=== PATIENT | male | born 1985 | race Caucasian/White ===

== ENCOUNTER 2017-10-13 16:39 | Emergency (ER) | payer SELFPAY ==
[~2017-10-13] VITALS: Ht 167.6 cm; Wt 99.1 kg
[2017-10-13 16:55] VITALS: BP 135/106
--- NOTE | 2017-10-13 17:00 | NUR ---
PT AMBULATED TO BED 6.
--- NOTE | 2017-10-13 17:03 | NUR ---
32M BIB SELF C/O RECTAL PAIN, ACHING, RADIATES TO BL FLANK, 10/10 X 1 WEEK; PT C/O 3 EPISODES OF DIARRHEA WITH BLOOD IN STOOLS AND NAUSEA TODAY, BUT STATES NO VOMITING AT THIS TIME; ABDOMEN SOFT, NON-TENDER, ACTIVE BOWEL SOUNDS X 4 QUADRANTS; PT AA&OX4, PERRLA, BL LUNG SOUNDS CLEAR, RR EVEN/UNLABORED, SKIN IS WARM/DRY/INTACT AT THIS TIME; STEADY GAIT; PT RESTING IN BED WITH HOB ELEVATED AND IN LOWEST POSITION; POSITIONED FOR COMFORT; ER MD MADE AWARE OF STATUS. WILL CONTINUE TO MONITOR.
--- NOTE | 2017-10-13 17:09 | NUR ---
ER MD DR. WARREN EVALUATING PT AT BEDSIDE.
[2017-10-13] MEDS ORDERED: NACL 0.9% 1,000 ML IV SCH (17:13)
[2017-10-13] MEDS ORDERED: KETOROLAC 30 MG/ML VIAL IVP ONE (17:15)
[2017-10-13] MEDS ORDERED: ONDANSETRON 4 MG/2 ML VIAL IVP ONE (17:15)
[2017-10-13 17:53] LABS: BASOPHILS # (AUTO) 0.2 K/uL (0.00-0.22); BASOPHILS % (AUTO) 1.8 % (0.0-2.0); EOSINOPHILS # (AUTO) 0.2 K/uL (0-0.4); EOSINOPHILS % (AUTO) 2.2 % (0.0-4.0); LYMPHOCYTES # (AUTO) 2.1 K/uL (2.0-11.5); MEAN CORPUSCULAR HEMOGLOBIN 30 pg (27-31); MEAN CORPUSCULAR HGB CONC 33 g/dL (33-37); MEAN CORPUSCULAR VOLUME 93 fL (80-94); MONOCYTES # (AUTO) 0.7 K/uL (0.8-1.0); MONOCYTES % (AUTO) 7.8 % (1.7-9.3); NEUTROPHILS # (AUTO) 5.4 K/uL (1.8-7.7); NEUTROPHILS % (AUTO) 63.2 % (42.2-75.2); PLATELET COUNT (AUTO) 284 K/uL (140-450); RED BLOOD CELL COUNT(AUTO) 5.28 MIL/uL (4.20-6.10); RED CELL DISTRIBUTION WIDTH 11.8 % (11.6-13.7); WHITE BLOOD COUNT (AUTO) 8.6 K/uL (4.8-10.8)
[2017-10-13 18:12] LABS: ANION GAP 7.1 (8-16); CARBON DIOXIDE 31.5 mmol/L (21-32); CREATININE 0.8 mg/dL (0.7-1.3); POTASSIUM 3.6 mmol/L (3.5-5.1)
[2017-10-13 18:18] LABS: ALBUMIN 3.4 g/dL (3.4-5.0); TOTAL BILIRUBIN 0.6 mg/dL (0.0-1.0)
[2017-10-13] MEDS ORDERED: MORPHINE SULFATE 4 MG/ML SYR IVP ONE (18:25)
--- NOTE | 2017-10-13 19:05 | NUR ---
Pt report given to SCAR CERVANTES. Transfer of care at this time.
--- NOTE | 2017-10-13 19:30 | NUR ---
DPatient discharged with v/s stable. Written and verbal after care instructions given and explained. Patient alert, oriented and verbalized understanding of instructions. Ambulatory with steady gait. All questions addressed prior to discharge. ID band removed. Patient advised to follow up with PMD. Rx of ZOFRAN, NORCO AND CIPRO given. Patient educated on indication of medication including possible reaction and side effects. Opportunity to ask questions provided and answered.
[2017-10-13 19:32] VITALS: BP 135/86
== END 2017-10-13 19:30 | disposition home or self-care (01) ==
LOC: MED 16:39
DX: R19.7 Diarrhea, unspecified (principal); E86.0 Dehydration; K62.89 Other specified diseases of anus and rectum; Z90.49 Acquired absence of other specified parts of digestive tract
CPT/HCPCS: 36415; 80053; 83605; 85025; 87040; 96361; 96374; 96375; 99284; J1885; J2270; J2405; J7030

== ENCOUNTER 2018-02-01 22:51 | Emergency (ER) | payer OTHER ==
[~2018-02-01] VITALS: Ht 170.2 cm; Wt 100.8 kg
[2018-02-01 23:05] VITALS: BP 147/97
--- NOTE | 2018-02-01 23:12 | NUR ---
33 Y/O M W/C/O RECTAL PAIN X 1 WK AGO. MED HX HEMORROIDS.. PT STATES NO BLEEDING . DENIES N/V/D; SKIN IS PINK/WARM/DRY; AAOX4 WITH EVEN AND STEADY GAIT; LUNGS CLEAR BL; HR EVEN AND REGULAR; PT DENIES ANY FEVER, CP, SOB, OR COUGH AT THIS TIME; PATIENT STATES PAIN OF 8/10 AT THIS TIME; PATIENT POSITIONED FOR COMFORT; HOB ELEVATED; BEDRAILS UP X2; BED DOWN. ER MD MADE AWARE OF PT STATUS. PER PT IT HURTS WHEN HE MOVE A LOT.
--- NOTE | 2018-02-01 23:25 | NUR ---
ASKED PT IF HE CAN REMOVE HIS PANTS, PER PT HE WILL REMOVE IT LATER WHEN THE DOCTOR COMES, PT SOLEO LOOKING AT HIS PHONE AT THIS TIME.
[2018-02-01 23:55] VITALS: BP 129/80
--- NOTE | 2018-02-01 23:55 | NUR ---
Patient discharged with v/s stable. Written and verbal after care instructions given and explained. Patient alert, oriented and verbalized understanding of instructions. Ambulatory with steady gait. All questions addressed prior to discharge. ID band removed. Patient advised to follow up with PMD. Rx of motrin 800mg, hydrocortisone 100mg/60ml rectal enema suspension given. Patient educated on indication of medication including possible reaction and side effects. Opportunity to ask questions provided and answered.
== END 2018-02-01 23:55 | disposition home or self-care (01) ==
LOC: MED 22:51
DX: K59.4 Anal spasm (principal)
CPT/HCPCS: 99283

== ENCOUNTER 2018-05-06 22:03 | Emergency (ER) | payer OTHER ==
[~2018-05-06] VITALS: Ht 160 cm; Wt 81.6 kg
[2018-05-06 22:06] VITALS: BP 150/100
[2018-05-06] MEDS ORDERED: NACL 0.9% 1,000 ML IV ONE (22:35)
[2018-05-06] MEDS ORDERED: methylPREDNISolone SS 125 MG/2 ML VIAL IM ONE (22:35)
[2018-05-06] MEDS ORDERED: ALBUTEROL SULFATE/IPRATROPIU 3 ML SOL IH ONE (22:35)
[2018-05-06] MEDS ORDERED: methylPREDNISolone SS 125 MG/2 ML VIAL IVP ONE (22:45)
[2018-05-06 23:31] VITALS: BP 145/77
== END 2018-05-06 23:03 | disposition home or self-care (01) ==
LOC: MED 22:03
DX: J20.9 Acute bronchitis, unspecified (principal)
CPT/HCPCS: 94640; 94760; 96361; 96374; 99284; J2930; J7030; J7620

== ENCOUNTER 2018-05-29 01:04 | Emergency (ER) | payer OTHER ==
[~2018-05-29] VITALS: Ht 167.6 cm; Wt 94.8 kg
[2018-05-29 01:09] VITALS: BP 166/96
--- NOTE | 2018-05-29 01:17 | NUR ---
pt ambulated to er bed 2.
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
--- NOTE | 2018-05-29 01:23 | NUR ---
talked to tiburcio brooke, advised all parties have spoken to concerning the case, no follow up needed.
[2018-05-29] MEDS ORDERED: IBUPROFEN 800 MG TAB PO ONE (01:35)
[2018-05-29] MEDS ORDERED: AMOXICILLIN 500 MG CAP PO ONE (01:35)
--- NOTE | 2018-05-29 02:51 | NUR ---
Patient discharged with v/s stable. Written and verbal after care instructions given and explained. Patient alert, oriented and verbalized understanding of instructions. Ambulatory with steady gait. All questions addressed prior to discharge. ID band removed. Patient advised to follow up with PMD. Rx of AUGMENTIN, MOTRIN given. Patient educated on indication of medication including possible reaction and side effects. Opportunity to ask questions provided and answered.
[2018-05-29 02:54] VITALS: BP 154/89
== END 2018-05-29 02:51 | disposition home or self-care (01) ==
LOC: MED 01:04
DX: S01.551A Open bite of lip, initial encounter (principal); S41.152A Open bite of left upper arm, initial encounter; S63.611A Unspecified sprain of left index finger, initial encounter; Y04.1XXA Assault by human bite, initial encounter; Y93.89 Activity, other specified; Y92.89 Other specified places as the place of occurrence of the external cause; Y99.8 Other external cause status
CPT/HCPCS: 73130; 90471; 90715; 99284; Q0092

== ENCOUNTER 2019-03-02 17:59 | Emergency (ER) | payer SELFPAY ==
--- NOTE | 2019-03-02 18:10 | NUR ---
no answer in er lobby
--- NOTE | 2019-03-02 18:20 | NUR ---
no answer in er lobby
--- NOTE | 2019-03-02 18:30 | NUR ---
no answer in er lobby
== END 2019-03-02 18:10 | disposition left against medical advice (07) ==
LOC: MED 17:59
DX: Z53.21 Procedure and treatment not carried out due to patient leaving prior to being seen by health care provider (principal)

== ENCOUNTER 2019-03-08 12:16 | Emergency (ER) | payer MEDICAID ==
[~2019-03-08] VITALS: Ht 167.6 cm; Wt 99.8 kg
[2019-03-08 12:22] VITALS: BP 143/87
--- NOTE | 2019-03-08 12:25 | NUR ---
BIB SELF. AAO X4. PT IS REQUESTING FOR MEDICATION REFILL-APPLYING FOR EMERGENCY MEDICAL. PT IS ON PREZCOBIX 800 MG-150 MG QD, DESCOVY 200MG-25 MG QD, VITAMIN D3 2000 UNITS QD. HOB UP. BED SIDE RAILS UP X1. ON LOW BED POSITION, LOCKED. ER MADE AWARE OF PT STATUS.
[2019-03-08 13:38] VITALS: BP 135/72
--- NOTE | 2019-03-08 13:40 | NUR ---
Patient discharged with v/s stable. Written and verbal after care instructions given and explained. Patient alert, oriented and verbalized understanding of instructions. Ambulatory with steady gait. All questions addressed prior to discharge. ID band removed. Patient advised to follow up with PMD. Rx of DESCOVEY, VITAMIN, PREZCOXIB given. Patient educated on indication of medication including possible reaction and side effects. Opportunity to ask questions provided and answered.
== END 2019-03-08 13:40 | disposition home or self-care (01) ==
LOC: MED 12:16
DX: Z76.0 Encounter for issue of repeat prescription (principal)
CPT/HCPCS: 99283

== ENCOUNTER 2019-03-10 17:41 | Emergency (ER) | payer MEDICAID ==
[~2019-03-10] VITALS: Ht 167.6 cm; Wt 97.5 kg
[2019-03-10 17:59] VITALS: BP 123/91
--- NOTE | 2019-03-10 18:03 | NUR ---
PATIENT AMBULATED TO ER BED 9.
--- NOTE | 2019-03-10 18:04 | NUR ---
PT IS A 34 Y/O MALE WHO PRESENTS TO THE ED C/O ABD PAIN. PER PT IT HAS BEEN GOING ON SINCE FRIDAY. PT REPORTS 8/10 ACHING EPIGASTRIC ABD PAIN. PT DENIES CP, SOB, REPORTS NAUSEA/VOMITING DENIES DIARRHEA. PT AWAKE AND ALERT, RR EVEN/UNLABORED. PT REPOSITIONED FOR COMFORT, BED IN LOWEST POSITION. ER MD DR. PIZARRO NOTIFIED. WILL CONTINUE TO MONITOR. PMH: APPENDIX SURGERY
[2019-03-10] MEDS ORDERED: FAMOTIDINE 20 MG TAB PO ONE (18:40)
[2019-03-10] MEDS ORDERED: METOCLOPRAMIDE 10 MG TAB PO ONE (18:40)
[2019-03-10] MEDS ORDERED: DICYCLOMINE HCL LIQUID 10 MG/5 ML UDC PO ONE (18:40)
[2019-03-10] MEDS ORDERED: hydrOXYzine HCL 25 MG TAB PO ONE (18:40)
[2019-03-10 19:16] VITALS: BP 125/85
--- NOTE | 2019-03-10 19:20 | NUR ---
Patient discharged with v/s stable. Written and verbal after care instructions given and explained. Patient alert, oriented and verbalized understanding of instructions. Ambulatory with steady gait. All questions addressed prior to discharge. ID band removed. Patient advised to follow up with PMD. Rx of FAMATOADINE, BENTYL given. Patient educated on indication of medication including possible reaction and side effects. Opportunity to ask questions provided and answered.
== END 2019-03-10 19:20 | disposition home or self-care (01) ==
LOC: MED 17:41
DX: R10.13 Epigastric pain (principal); R11.2 Nausea with vomiting, unspecified; Z90.49 Acquired absence of other specified parts of digestive tract
CPT/HCPCS: 99284; J8597

== ENCOUNTER 2019-08-06 05:59 | Emergency (ER) | payer MEDICAID ==
[~2019-08-06] VITALS: Ht 167.6 cm; Wt 79.4 kg
[2019-08-06 06:03] VITALS: BP 143/96
--- NOTE | 2019-08-06 06:03 | NUR ---
PT AMBULATED SELF TO BED #11
--- NOTE | 2019-08-06 06:08 | NUR ---
34 Y/O MALE PRESENTS TO ED, C/O THROAT PAIN 08/26. PT STATES PAIN STARTED YESTERDAY. UNABLE TO TOLERATE FOOD AND LIQUID WITHOUT HAVING ANYPAIN. PT DENIES ANY DIFFICULTY BREATHING OR SOB. THROAT APPEARS TO BE PINK AND MOIST. PT HAS NO FEVER, TEMPORAL TEMP AT 97.6. PT DENIES TAKING ANY MEDICATIONS FOR PAIN. PT VSS. ERMD AWARE. WILL CONTINUE TO MONITOR.
[2019-08-06] MEDS ORDERED: DEXAMETHASONE 10 MG/ML VIAL PO ONE (06:45)
[2019-08-06] MEDS ORDERED: KETOROLAC 30 MG/ML VIAL IM ONE (06:45)
[2019-08-06 07:07] VITALS: BP 146/78
--- NOTE | 2019-08-06 07:07 | NUR ---
PT DISCHARGED WITH PAPER. RX T3, AMOXICILLIN, NAPROSYN. EDUCATED PT REGARDING MEDICATIONS AND S/E. EDUCATED PT REGARDING D/C DIAGNOSIS AND INSTRUCTIONS. PT VERBALIZED UNDERSTANDING OF TEACHING. TOLD PT TO FOLLOW UP WITH PCP AND WHEN TO RETURN TO ED. PT VSS. ALL QUESTIONS ANSWERED.
== END 2019-08-06 07:07 | disposition home or self-care (01) ==
LOC: MED 05:59
DX: J02.9 Acute pharyngitis, unspecified (principal)
CPT/HCPCS: 96372; 99283; J1100; J1885

== ENCOUNTER 2019-10-10 19:25 | Emergency (ER) | payer MEDICAID ==
[~2019-10-10] VITALS: Ht 167.6 cm; Wt 81.6 kg
[2019-10-10 19:44] VITALS: BP 156/108
--- NOTE | 2019-10-10 19:44 | NUR ---
Pt ambulated to bed
--- NOTE | 2019-10-10 20:00 | NUR ---
34/M PRESENTS TO ED, C/O COUGH, CONGESTION, RHINNORHEA, X2 WEEKS. PT AWAKE AND ALERT, SKIN NORMAL COLOR WARM AND DRY, RR EVEN AND UNLABORED.
[2019-10-10 20:05] VITALS: BP 156/108
--- NOTE | 2019-10-10 20:05 | NUR ---
Patient discharged with recent v/s stable by Dr. Noland. Written and verbal after care instructions given and explained by Dr. Noland. Patient alert, oriented and verbalized understanding of instructions. Ambulatory with steady gait. All questions addressed prior to discharge by Dr. Noland. ID band removed by Dr. Noland. Patient advised to follow up with PMD by Dr. Noland. Rx of Augmentin given by Dr. Noland. Patient educated on indication of medication including possible reaction and side effects by Dr. Noland. Opportunity to ask questions provided and answered by Dr. Noland.
== END 2019-10-10 20:05 | disposition home or self-care (01) ==
LOC: MED 19:25
DX: J40 Bronchitis, not specified as acute or chronic (principal)
CPT/HCPCS: 99283

== ENCOUNTER 2020-08-12 13:00 | Emergency (ER) | payer MEDICAID ==
[~2020-08-12] VITALS: Ht 170.2 cm; Wt 98.0 kg
[2020-08-12 13:05] VITALS: BP 136/86
[2020-08-12 13:22] VITALS: BP 136/86
== END 2020-08-12 13:23 | disposition home or self-care (01) ==
LOC: MED 13:00
DX: J30.9 Allergic rhinitis, unspecified (principal)
CPT/HCPCS: 99283

== ENCOUNTER 2020-10-12 21:04 | Emergency (ER) | payer MEDICAID, SELFPAY ==
[~2020-10-12] VITALS: Ht 170.2 cm; Wt 86.2 kg
[2020-10-12 21:16] VITALS: BP 156/109
--- NOTE | 2020-10-12 21:51 | NUR ---
no nursing intervention ordered by Dr. Briseno.
--- NOTE | 2020-10-12 21:52 | NUR ---
Patient discharged with v/s stable. Written and verbal after care instructions given and explained. Patient alert, oriented and verbalized understanding of instructions. Ambulatory with steady gait. All questions addressed prior to discharge. ID band removed. Patient advised to follow up with PMD. Rx of flonase and amoxicillin given. Patient educated on indication of medication including possible reaction and side effects. Opportunity to ask questions provided and answered.
== END 2020-10-12 21:52 | disposition home or self-care (01) ==
LOC: MED 21:04
DX: J32.9 Chronic sinusitis, unspecified (principal)
CPT/HCPCS: 99283

== ENCOUNTER 2021-01-21 10:01 | Emergency (ER) | payer MEDICAID, SELFPAY ==
[~2021-01-21] VITALS: Ht 172.7 cm; Wt 86.2 kg
[2021-01-21 10:03] VITALS: BP 169/116
--- NOTE | 2021-01-21 10:09 | NUR ---
pt ambulated to bed 9 with steady gait
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
--- NOTE | 2021-01-21 10:22 | NUR ---
GABINO HIGUERA SAMPLE GIVEN TO EMILI OCASIO TECH
--- NOTE | 2021-01-21 10:27 | NUR ---
DR BURK AT BEDSIDE
[2021-01-21] MEDS: NACL 0.9% 1,000 ML IV ONE (10:29)
[2021-01-21 10:30] LABS: BASOPHILS # (AUTO) 0.1 K/uL (0.00-0.22); BASOPHILS % (AUTO) 1.1 % (0.0-2.0); EOSINOPHILS # (AUTO) 0.1 K/uL (0-0.4); HEMATOCRIT 43.2 % (36-52); HEMOGLOBIN 15.1 g/dL (12.0-18.0); LYMPHOCYTES # (AUTO) 1.2 K/uL (2.0-11.5); LYMPHOCYTES % (AUTO) 19.6 % (20.5-51.1); MEAN CORPUSCULAR HEMOGLOBIN 31 pg (27-31); MEAN CORPUSCULAR HGB CONC 35 g/dL (33-37); MEAN CORPUSCULAR VOLUME 88.8 fL (80-94); MONOCYTES # (AUTO) 0.4 K/uL (0.8-1.0); MONOCYTES % (AUTO) 6.7 % (1.7-9.3); NEUTROPHILS # (AUTO) 4.3 K/uL (1.8-7.7); NEUTROPHILS % (AUTO) 71.6 % (42.2-75.2); PLATELET COUNT (AUTO) 289 K/uL (140-450); RED BLOOD CELL COUNT(AUTO) 4.86 MIL/uL (4.20-6.10); WHITE BLOOD COUNT (AUTO) 6.1 K/uL (4.8-10.8)
[2021-01-21 10:41] LABS: ANION GAP 8.1 (8-16); CARBON DIOXIDE 30.6 mmol/L (21-32); CREATININE 0.8 mg/dL (0.6-1.3); POTASSIUM 3.7 mmol/L (3.5-5.1)
[2021-01-21 10:45] LABS: ALBUMIN 3.6 g/dL (3.4-5.0); BILIRUBIN,DIRECT 0.1 mg/dL (0.0-0.3); TOTAL BILIRUBIN 0.5 mg/dL (0.0-1.0)
[2021-01-21] MEDS ORDERED: ONDA4TAB PO ×2 (11:15→22:30)
--- NOTE | 2021-01-21 11:30 | NUR ---
Patient discharged with v/s stable. Written and verbal after care instructions given and explained. Patient verbalized understanding. Ambulatory with steady gait. All questions addressed prior to discharge. Advised to follow up with PMD.
[2021-01-21 11:37] VITALS: BP 146/91
[2021-01-21] MEDS ORDERED: IMO2 PO (22:29)
== END 2021-01-21 11:30 | disposition home or self-care (01) ==
LOC: MED 10:01
DX: R11.2 Nausea with vomiting, unspecified (principal); Z20.822 Contact with and (suspected) exposure to COVID-19; R19.7 Diarrhea, unspecified; R10.9 Unspecified abdominal pain
CPT/HCPCS: 36415; 80048; 80076; 83690; 85025; 96360; 99283

== ENCOUNTER 2021-01-21 19:52 | Emergency (ER) | payer MEDICAID ==
[~2021-01-21] VITALS: Ht 170.2 cm; Wt 86.2 kg
[~2021-01-21 19:52] MED LIST: ONDA4TAB PO
[2021-01-21 19:59] VITALS: BP 145/99
[2021-01-21] MEDS ORDERED: ONDANSETRON 4 MG/2 ML VIAL IVP ONE (21:00)
[2021-01-21] MEDS ORDERED: NACL 0.9% 1,000 ML IV ONE (21:00)
[2021-01-21] MEDS ORDERED: ACETAMINOPHEN EXTRA STRENGTH 500 MG TAB PO ONE (21:20)
[2021-01-21 21:24] LABS: BASOPHILS % (AUTO) 0.7 % (0.0-2.0); EOSINOPHILS # (AUTO) 0.1 K/uL (0-0.4); EOSINOPHILS % (AUTO) 1.2 % (0.0-4.0); HEMATOCRIT 40.2 % (36-52); LYMPHOCYTES # (AUTO) 1.6 K/uL (2.0-11.5); LYMPHOCYTES % (AUTO) 28.3 % (20.5-51.1); MEAN CORPUSCULAR HEMOGLOBIN 31 pg (27-31); MEAN CORPUSCULAR HGB CONC 35 g/dL (33-37); MEAN CORPUSCULAR VOLUME 88.4 fL (80-94); MONOCYTES # (AUTO) 0.4 K/uL (0.8-1.0); MONOCYTES % (AUTO) 7.1 % (1.7-9.3); NEUTROPHILS # (AUTO) 3.6 K/uL (1.8-7.7); NEUTROPHILS % (AUTO) 62.7 % (42.2-75.2); PLATELET COUNT (AUTO) 288 K/uL (140-450); RED BLOOD CELL COUNT(AUTO) 4.54 MIL/uL (4.20-6.10); RED CELL DISTRIBUTION WIDTH 13.3 % (11.6-13.7); WHITE BLOOD COUNT (AUTO) 5.8 K/uL (4.8-10.8)
[2021-01-21 21:42] LABS: ALBUMIN 3.4 g/dL (3.4-5.0); ANION GAP 12.2 (8-16); CREATININE 0.9 mg/dL (0.6-1.3); POTASSIUM 4.2 mmol/L (3.5-5.1); TOTAL BILIRUBIN 0.3 mg/dL (0.0-1.0)
[2021-01-21] MEDS ORDERED: ALUMINUM HYD/MAG/SIMETHICONE 30 ML UDC PO ONE (21:55)
[2021-01-21] MEDS ORDERED: METOCLOPRAMIDE 10 MG/2 ML INJ VIAL IVP ONE (21:55)
[2021-01-21] MEDS ORDERED: FAMOTIDINE 20 MG TAB PO ONE (21:55)
[2021-01-21] MEDS ORDERED: IMO2 PO (22:29)
[2021-01-21] MEDS ORDERED: ONDA4TAB PO (22:30)
[2021-01-21 22:50] VITALS: BP 145/99
== END 2021-01-21 22:50 | disposition home or self-care (01) ==
LOC: MED 19:52
DX: R19.7 Diarrhea, unspecified (principal); Z20.822 Contact with and (suspected) exposure to COVID-19; R10.13 Epigastric pain; R11.2 Nausea with vomiting, unspecified; Z90.49 Acquired absence of other specified parts of digestive tract; Z79.899 Other long term (current) drug therapy
CPT/HCPCS: 36415; 80053; 83690; 85025; 96361; 96374; 96375; 99284; J2405; J2765; U0003

== ENCOUNTER 2021-04-13 17:41 | Emergency (ER) | payer MEDICAID ==
[~2021-04-13] VITALS: Ht 167.6 cm; Wt 99.8 kg
[~2021-04-13 17:41] MED LIST changes: +IMO2 PO
[2021-04-13 17:45] VITALS: BP 140/104
--- NOTE | 2021-04-13 17:50 | NUR ---
PT AMBULATED TO BED 02.
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
[2021-04-13] MEDS ORDERED: NAPR-54 PO (18:27)
[2021-04-13] MEDS: KETOROLAC 30 MG/ML VIAL IM ONE (18:43)
[2021-04-13 18:46] VITALS: BP 140/104
== END 2021-04-13 18:47 | disposition home or self-care (01) ==
LOC: MED 17:41
DX: M25.531 Pain in right wrist (principal); I10 Essential (primary) hypertension; F41.9 Anxiety disorder, unspecified; Z79.899 Other long term (current) drug therapy
CPT/HCPCS: 29125; 73110; 96372; 99283; J1885

== ENCOUNTER 2021-04-15 08:17 | Emergency (ER) | payer MEDICAID ==
[~2021-04-15] VITALS: Ht 162.6 cm; Wt 99.8 kg
[~2021-04-15 08:17] MED LIST changes: +NAPR-54 PO
[2021-04-15 08:25] VITALS: BP 156/95
[2021-04-15] MEDS ORDERED: IBUPROFEN 600 MG TAB PO ONE (08:40)
[2021-04-15] MEDS ORDERED: IBUP-2213 PO (08:41)
[2021-04-15 08:59] VITALS: BP 156/95
[2021-04-15] MEDS ORDERED: GABA300C PO (21:22)
== END 2021-04-15 08:59 | disposition home or self-care (01) ==
LOC: MED 08:17
DX: G56.01 Carpal tunnel syndrome, right upper limb (principal); Z79.899 Other long term (current) drug therapy
CPT/HCPCS: 99282

== ENCOUNTER 2021-04-15 20:39 | Emergency (ER) | payer MEDICAID ==
[~2021-04-15] VITALS: Ht 167.6 cm; Wt 103.4 kg
[~2021-04-15 20:39] MED LIST changes: +IBUP-2213 PO
[2021-04-15 20:42] VITALS: BP 149/97
--- NOTE | 2021-04-15 20:50 | NUR ---
PT TAKEN TO BED 11
[2021-04-15 20:55] VITALS: BP 149/97
--- NOTE | 2021-04-15 21:04 | NUR ---
Dr. Braun examining patient.
[2021-04-15] MEDS ORDERED: GABAPENTIN 300 MG CAP PO ONE (21:10)
[2021-04-15] MEDS ORDERED: GABA300C PO (21:22)
--- NOTE | 2021-04-15 21:31 | NUR ---
d/c with VSS. d/c education given. rx of neurontin given. opportunity to ask questions given and answered.
== END 2021-04-15 21:31 | disposition home or self-care (01) ==
LOC: MED 20:39
DX: M54.10 Radiculopathy, site unspecified (principal); Z79.899 Other long term (current) drug therapy
CPT/HCPCS: 99283

== ENCOUNTER 2021-04-24 01:00 | Emergency (ER) | payer MEDICAID ==
[~2021-04-24] VITALS: Ht 167.6 cm; Wt 86.2 kg
[~2021-04-24 01:00] MED LIST changes: +GABA300C PO
[2021-04-24 01:12] VITALS: BP 147/78
--- NOTE | 2021-04-24 01:12 | NUR ---
TO BED AMBULATORY
--- NOTE | 2021-04-24 01:19 | NUR ---
Dr. Moreno examining patient.
[2021-04-24 01:26] VITALS: BP 147/78
--- NOTE | 2021-04-24 01:26 | NUR ---
Patient discharged with v/s stable. Written and verbal after care instructions given and explained. Patient verbalized understanding. Ambulatory with steady gait. All questions addressed prior to discharge. Advised to follow up with PMD. NO NURSING INTERVENTIONS NEEDED.
== END 2021-04-24 01:26 | disposition home or self-care (01) ==
LOC: MED 01:00
DX: G56.01 Carpal tunnel syndrome, right upper limb (principal); Z79.899 Other long term (current) drug therapy
CPT/HCPCS: 99281

== ENCOUNTER 2021-04-30 14:20 | Emergency (ER) | payer MEDICAID ==
[~2021-04-30] VITALS: Ht 167.6 cm; Wt 101.6 kg
[2021-04-30 14:51] VITALS: BP 141/96
--- NOTE | 2021-04-30 14:55 | NUR ---
PT AMBULATORY TO LOBBY TO A/W BED
--- NOTE | 2021-04-30 15:14 | NUR ---
PT EVALUATED BY PA. JESSE
[2021-04-30] MEDS ORDERED: IBUP-1842 PO (15:18)
[2021-04-30] MEDS ORDERED: LIDO100S MC (15:18)
--- NOTE | 2021-04-30 15:34 | NUR ---
Patient discharged with v/s stable. Written and verbal after care instructions given and explained. Patient alert, oriented and verbalized understanding of instructions. Ambulatory with steady gait. All questions addressed prior to discharge. ID band removed. Patient advised to follow up with PMD. Rx of MOTRIN AND LIDOCAINE given. Patient educated on indication of medication including possible reaction and side effects. Opportunity to ask questions provided and answered.
== END 2021-04-30 15:34 | disposition home or self-care (01) ==
LOC: MED 14:20
DX: K14.6 Glossodynia (principal); F15.10 Other stimulant abuse, uncomplicated; Z79.899 Other long term (current) drug therapy
CPT/HCPCS: 99283

== ENCOUNTER 2021-08-01 20:56 | Emergency (ER) | payer MEDICAID ==
[~2021-08-01] VITALS: Ht 167.6 cm; Wt 81.6 kg
[~2021-08-01 20:56] MED LIST changes: +IBUP-1842 PO; +LIDO100S MC
[2021-08-01 21:02] VITALS: BP 134/68
--- NOTE | 2021-08-01 21:08 | NUR ---
TO LOBBY FOLLOWING TRIAGE
[2021-08-01] MEDS ORDERED: QUET200T PO (21:47)
[2021-08-01 21:58] VITALS: BP 134/68
--- NOTE | 2021-08-01 21:58 | NUR ---
Patient discharged with v/s stable. Written and verbal after care instructions given and explained. Patient alert, oriented and verbalized understanding of instructions. Ambulatory with steady gait. All questions addressed prior to discharge. ID band removed. Patient advised to follow up with PMD. Rx of QUETIAPINE FUMARATE given. Patient educated on indication of medication including possible reaction and side effects. Opportunity to ask questions provided and answered.
== END 2021-08-01 21:58 | disposition home or self-care (01) ==
LOC: MED 20:56
DX: F41.9 Anxiety disorder, unspecified (principal); Z76.0 Encounter for issue of repeat prescription
CPT/HCPCS: 99281

== ENCOUNTER 2022-02-16 17:25 | Emergency (ER) | payer MEDICAID ==
[~2022-02-16] VITALS: Ht 167.6 cm; Wt 81.6 kg
[~2022-02-16 17:25] MED LIST changes: +QUET200T PO
[2022-02-16 17:54] VITALS: BP 147/82
[2022-02-16] MEDS ORDERED: LORA10TA19 PO (18:44)
[2022-02-16] MEDS ORDERED: FLONAS NS (18:44)
[2022-02-16] MEDS ORDERED: ALBU0.0912 IH (18:44)
[2022-02-16 18:50] VITALS: BP 147/82
[2022-02-17] MEDS ORDERED: CETI1TAB5 PO (07:30)
[2022-02-17] MEDS ORDERED: FLONAS NS (07:30)
== END 2022-02-16 18:50 | disposition home or self-care (01) ==
LOC: MED 17:25
DX: J30.9 Allergic rhinitis, unspecified (principal); R03.0 Elevated blood-pressure reading, without diagnosis of hypertension; F17.210 Nicotine dependence, cigarettes, uncomplicated; J45.909 Unspecified asthma, uncomplicated; Z79.899 Other long term (current) drug therapy
CPT/HCPCS: 99283

== ENCOUNTER 2022-02-17 06:52 | Emergency (ER) | payer MEDICAID ==
[~2022-02-17] VITALS: Ht 167.6 cm; Wt 103.1 kg
[~2022-02-17 06:52] MED LIST changes: +ALBU0.0912 IH; +FLONAS NS; +LORA10TA19 PO
[2022-02-17 06:58] VITALS: BP 132/103
[2022-02-17] MEDS ORDERED: LORATADINE 10 MG TAB PO ONE (07:25)
[2022-02-17] MEDS ORDERED: CETI1TAB5 PO (07:30)
[2022-02-17] MEDS ORDERED: FLONAS NS (07:30)
[2022-02-17 08:05] VITALS: BP 132/103
== END 2022-02-17 08:05 | disposition home or self-care (01) ==
LOC: MED 06:52
DX: J30.9 Allergic rhinitis, unspecified (principal); F41.9 Anxiety disorder, unspecified; R03.0 Elevated blood-pressure reading, without diagnosis of hypertension; J45.909 Unspecified asthma, uncomplicated; Z79.899 Other long term (current) drug therapy
CPT/HCPCS: 94640; 99285

== ENCOUNTER 2022-02-17 22:31 | Inpatient (IN) | payer MEDICAID, SELFPAY ==
[~2022-02-17] VITALS: Ht 167.6 cm; Wt 101.2 kg
[~2022-02-17 22:31] MED LIST changes: +CETI1TAB5 PO
[2022-02-17 22:43] VITALS: BP 137/107
--- NOTE | 2022-02-17 22:48 | NUR ---
PT TAKEN TO BED 3
[2022-02-17] MEDS ORDERED: lisinopriL 20 MG TAB PO ONE (22:50)
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
[2022-02-17 23:03] LABS: BASOPHILS # (AUTO) 0.1 K/uL (0.00-0.22); BASOPHILS % (AUTO) 0.7 % (0.0-2.0); EOSINOPHILS # (AUTO) 0.1 K/uL (0-0.4); EOSINOPHILS % (AUTO) 1.6 % (0.0-4.0); HEMATOCRIT 38.9 % (36-52); HEMOGLOBIN 13.6 g/dL (12.0-18.0); LYMPHOCYTES # (AUTO) 1.9 K/uL (2.0-11.5); LYMPHOCYTES % (AUTO) 20.6 % (20.5-51.1); MEAN CORPUSCULAR HEMOGLOBIN 32 pg (27-31); MEAN CORPUSCULAR HGB CONC 35 g/dL (33-37); MEAN CORPUSCULAR VOLUME 90.7 fL (80-94); MONOCYTES # (AUTO) 0.4 K/uL (0.8-1.0); MONOCYTES % (AUTO) 4.8 % (1.7-9.3); NEUTROPHILS # (AUTO) 6.6 K/uL (1.8-7.7); NEUTROPHILS % (AUTO) 72.3 % (42.2-75.2); PLATELET COUNT (AUTO) 315 K/uL (140-450); RED CELL DISTRIBUTION WIDTH 12.7 % (11.6-13.7); WHITE BLOOD COUNT (AUTO) 9.1 K/uL (4.8-10.8)
[2022-02-17 23:21] LABS: ALBUMIN 3.6 g/dL (3.4-5.0); ANION GAP 13.1 (8-16); CARBON DIOXIDE 28.5 mmol/L (21-32); CREATININE 0.6 mg/dL (0.6-1.3); POTASSIUM 3.6 mmol/L (3.5-5.1); TOTAL BILIRUBIN 0.4 mg/dL (0.0-1.0)
--- NOTE | 2022-02-17 23:21 | NUR ---
Note matti in ED - 02/17/22 at 2335 by ANDREI Patient discharged BY DR HOLLINS with v/s stable. Written and verbal after care instructions given and explained. Patient verbalized understanding. Ambulatory with steady gait. All questions addressed prior to discharge. Advised to follow up with PMD.
[2022-02-17 23:24] LABS: APPEARANCE,URINE CLEAR (CLEAR); BILIRUBIN,URINE NEGATIVE (NEGATIVE); BLOOD, URINE NEGATIVE (NEGATIVE); COLOR,URINE YELLOW (YELLOW); LEUKOCYTE ESTERASE ,URINE NEGATIVE (NEGATIVE); NITRITE, URINE NEGATIVE (NEGATIVE); PH,URINE 6.5 (5.0-9.0); UGLUCOSE NEGATIVE (NEGATIVE)
[2022-02-17 23:41] LABS: BARBITURATE, URINE NEGATIVE ng/ml (NEG <=200); BENZODIAZEPINE, URINE NEGATIVE ng/mL (NEG <=200); CANNABINOID, URINE NEGATIVE ng/mL (NEG <=50); COCAINE, URINE NEGATIVE ng/mL (NEG <=300); OPIATE, URINE NEGATIVE ng/mL (NEG <=2000); PHENCYCLIDINE SCREEN,URINE NEGATIVE ng/mL (NEG <=25)
--- NOTE | 2022-02-18 00:54 | NUR ---
ER MD AT BEDSIDE ; PT WILL BE ADMITTED. PT ON MONITOR ; RESTING SIDERAILS UP
[2022-02-18] MEDS ORDERED: ONDANSETRON 4 MG/2 ML VIAL IVP PRN (01:20)
--- NOTE | 2022-02-18 01:51 | NUR ---
20G IV CATH RIGHT AC. MED RECONCILE DONE. AWAITING BED ASSIG. FOOD GIVEN TO PT
--- NOTE | 2022-02-18 02:05 | NUR ---
Patient will be admitted to care of DR HERNANDEZ. Admited to TELE. Will go to [id number]. Belongings list completed. Report to NAJMA ABBOTT .
[2022-02-18 02:54] VITALS: BP 153/99
--- NOTE | 2022-02-18 07:45 | NUR ---
RECEIVED ENDORSEMENT FROM PM SHIFT NURSE THAT PT STAND AT DRESHERWAY W/ STABLE CONDITION, LAC 20G SALINE LOCK INTACT. PENDING THREAD LASTER CONSULT. WILL CONTINUE TO MONITOR
[2022-02-18] MEDS ORDERED: ZOLPIDEM 5 MG TAB PO PRN (09:00)
[2022-02-18] MEDS ORDERED: ACETAMINOPHEN 325 MG TAB PO PRN (09:00)
[2022-02-18] MEDS ORDERED: NACL 0.9% 1,000 ML IV SCH (09:00)
[2022-02-18] MEDS ORDERED: ALBUTEROL SULFATE/IPRATROPIU 3 ML SOL IH PRN (09:00)
[2022-02-18] MEDS ORDERED: HYDROcodone/APAP 7.5/325 MG 1 TAB PO PRN (09:00)
[2022-02-18] MEDS ORDERED: PANTOPRAZOLE 40 MG TABEC PO SCH (09:00)
[2022-02-18] MEDS ORDERED: POTASSIUM CHLORIDE 10 MEQ TABER PO PRN (09:00)
[2022-02-18] MEDS ORDERED: ONDANSETRON 4 MG/2 ML VIAL IM/IVP PRN (09:00)
[2022-02-18] MEDS ORDERED: DOCUSATE SODIUM 100 MG GELCAP PO PRN (09:00)
[2022-02-18] MEDS ORDERED: guaiFENesin DM 200/20 MG-10 ML 10 ML UDC PO PRN (09:00)
[2022-02-18 09:40] LABS: AMYLASE 60 U/L (25-115); CHOL/HDL RATIO 2.5 (1-4.5); FREE T4 (FREE THYROXINE) 0.86 ng/dL (0.76-1.46); HDL CHOLESTEROL 57 mg/dL (40-60); LDL (CALC) 52 mg/dL (60-100); LIPASE 57 U/L (73-393); MAGNESIUM 1.8 mg/dL (1.8-2.4); THYROID STIMULATING HORMONE 2.29 uIU/mL (0.34-3.74); TRIGLYCERIDES 160 mg/dL (30-150)
--- NOTE | 2022-02-18 09:47 | NUR ---
0918 AFTER NURSE EXPLAIN RISK & BENEFIT OF LEFT WITH AMA, PT SIGNED AMA DOCUMENT AND LEFT THE FACILITY. PT STATE THAT HE/SHE "FEELS GOOD NOW" AND HE/SHE WOULD "NOT DO DRUG IN THE FUTURE" TO AVOID SOB/ASTHMA EXACERBATION CONDITION LIKE THIS TIME. DR. PENDLETON INFORMED
[2022-02-18] MEDS ORDERED: ALBUTEROL SULFATE/IPRATROPIU 3 ML SOL IH SCH (13:00)
[2022-02-19 07:08] LABS: T4 (THYROXINE) 7.3 ug/dL (4.5-12.0)
== END 2022-02-18 09:52 | disposition left against medical advice (07) | DRG 133 ==
LOC: MED 22:31 → MTU 02-18 01:22
PROVIDERS: ADMIT Hospitalist; ATTEND Hospitalist
DX: J96.00 Acute respiratory failure, unspecified whether with hypoxia or hypercapnia (principal); G92.9 Unspecified toxic encephalopathy; I42.9 Cardiomyopathy, unspecified; E86.0 Dehydration; I51.7 Cardiomegaly; J45.909 Unspecified asthma, uncomplicated; F15.10 Other stimulant abuse, uncomplicated; Z20.822 Contact with and (suspected) exposure to COVID-19; Z79.899 Other long term (current) drug therapy
CPT/HCPCS: 36415; 71045; 80053; 80305; 81003; 82150; 83036; 83690; 83735; 83880; 84100; 84436; 84439; 84443; 84479; 84484; 85025; 85610; 85730; 87081; 93005; 99291; Q0092

== ENCOUNTER 2022-11-19 20:04 | Emergency (ER) | payer MEDICAID ==
[~2022-11-19] VITALS: Ht 170.2 cm; Wt 86.2 kg
[~2022-11-19 20:04] MED LIST changes: -CETI1TAB5 PO; -GABA300C PO; -IBUP-1842 PO; -IBUP-2213 PO; -IMO2 PO; -LIDO100S MC; -LORA10TA19 PO; -NAPR-54 PO; -ONDA4TAB PO; -QUET200T PO
[2022-11-19 20:20] VITALS: BP 150/90
--- NOTE | 2022-11-19 20:23 | NUR ---
TO LOBBY A/W BED AMBULATORY
--- NOTE | 2022-11-19 21:20 | NUR ---
Patient being evaluated by physician
[2022-11-19] MEDS ORDERED: CARB15DR61 OT (21:25)
[2022-11-19] MEDS ORDERED: AMOX500C25 PO (21:25)
[2022-11-19 21:35] VITALS: BP 142/80
--- NOTE | 2022-11-19 21:35 | NUR ---
Patient discharged with v/s stable. Written and verbal after care instructions given and explained. Patient alert, oriented and verbalized understanding of instructions. Ambulatory with steady gait. All questions addressed prior to discharge. ID band removed. Patient advised to follow up with PMD. Rx of AMOXICILLIN, DEBROX given. Patient educated on indication of medication including possible reaction and side effects. Opportunity to ask questions provided and answered.
== END 2022-11-19 21:35 | disposition home or self-care (01) ==
LOC: MED 20:04
DX: H61.23 Impacted cerumen, bilateral (principal); H66.91 Otitis media, unspecified, right ear; F15.90 Other stimulant use, unspecified, uncomplicated; Z79.899 Other long term (current) drug therapy
CPT/HCPCS: 99283

== ENCOUNTER 2022-12-20 20:58 | Emergency (ER) | payer MEDICAID ==
[~2022-12-20] VITALS: Ht 170.2 cm; Wt 81.6 kg
[~2022-12-20 20:58] MED LIST changes: +AMOX500C25 PO; +CARB15DR61 OT
[2022-12-20 21:11] VITALS: BP 161/105
--- NOTE | 2022-12-20 23:32 | NUR ---
PT TAKEN TO BED 6
--- NOTE | 2022-12-20 23:47 | NUR ---
37YR OLD MALE BIB SELF C/O ABD PAIN R EAR PAIN AND L LEG PAIN . PT STATES HAVING PAIN X1WEEK. DENIES ANY INJURY . PAIN LEVEL 10/10. PT IS A&OX4. PT HAVING ANXIETY DUE TO PAIN. -SWELLING TO LEG +ROM STRONG STEADY GAIT. HOB IS ELEVATED BED AT LOWEST POSITION NKDA NO MED HX
--- NOTE | 2022-12-21 00:20 | NUR ---
Dr. Fragoso examining patient.
[2022-12-21] MEDS ORDERED: KETOROLAC 30 MG/ML VIAL IM ONE (00:30)
[2022-12-21] MEDS ORDERED: AMOXIL/CLAVULANATE 875/125 MG 1 TAB PO ONE (00:30)
[2022-12-21] MEDS ORDERED: AMOX1TAB8 PO (00:37)
[2022-12-21] MEDS ORDERED: IBUP-1842 PO (00:38)
== END 2022-12-21 00:41 | disposition home or self-care (01) ==
LOC: MED 20:58
DX: S80.12XA Contusion of left lower leg, initial encounter (principal); H66.91 Otitis media, unspecified, right ear; I10 Essential (primary) hypertension; Z79.899 Other long term (current) drug therapy; X58.XXXA Exposure to other specified factors, initial encounter; Y93.89 Activity, other specified; Y92.89 Other specified places as the place of occurrence of the external cause; Y99.8 Other external cause status
CPT/HCPCS: 96372; 99283; J1885

== ENCOUNTER 2023-02-02 22:29 | Emergency (ER) | payer MEDICAID ==
[~2023-02-02] VITALS: Ht 170.2 cm; Wt 85.7 kg
[~2023-02-02 22:29] MED LIST changes: +AMOX1TAB8 PO; +IBUP-1842 PO
--- NOTE | 2023-02-02 23:11 | NUR ---
Emanuel chino in [facility] - 02/02/23 at 2312 by YOLANDA PT TAKEN TO BED 11
[2023-02-02 23:15] VITALS: BP 162/89
[2023-02-02 23:52] LABS: APPEARANCE,URINE CLEAR (CLEAR); BILIRUBIN,URINE NEGATIVE (NEGATIVE); BLOOD, URINE 3+ (NEGATIVE); COLOR,URINE YELLOW (YELLOW); LEUKOCYTE ESTERASE ,URINE 1+ (NEGATIVE); NITRITE, URINE NEGATIVE (NEGATIVE); PH,URINE 7.5 (5.0-9.0); UGLUCOSE NEGATIVE (NEGATIVE)
[2023-02-03 00:10] LABS: RBC,URINE TOO NUMEROUS TO COUN /HPF (0-5)
--- NOTE | 2023-02-03 00:31 | NUR ---
Dr. Rubio examining patient.
[2023-02-03] MEDS ORDERED: cefTRIAXone 500 MG in LIDOCAINE MPF 1% 1 ML IM ONE (00:35)
[2023-02-03] MEDS ORDERED: DOXY-690 PO (00:41)
[2023-02-03] MEDS ORDERED: CEPH-588 PO (00:41)
[2023-02-03] MEDS ORDERED: cefTRIAXone 1,000 MG VIAL ONE (00:46)
[2023-02-03] MEDS ORDERED: LIDOCAINE MPF 1% 5 ML ONE (00:46)
[2023-02-03 01:11] VITALS: BP 151/96
--- NOTE | 2023-02-03 01:11 | NUR ---
Patient discharged with v/s stable. Written and verbal after care instructions given and explained. Patient alert, oriented and verbalized understanding of instructions. Ambulatory with steady gait. All questions addressed prior to discharge. ID band removed. Patient advised to follow up with PMD. Rx of Keflex and Doxycycline given. Patient educated on indication of medication including possible reaction and side effects. Opportunity to ask questions provided and answered.
[2023-02-05] MEDS ORDERED: NITR100C7 PO (13:49)
--- NOTE | 2023-02-05 13:50 | NUR ---
CALLED X1, DAUGHTER PICKED UP PHONE AND HUNG UP CALLED X2, PT STATES WRONG PHONE NUMBER
== END 2023-02-03 01:11 | disposition home or self-care (01) ==
LOC: MED 22:29
DX: N30.01 Acute cystitis with hematuria (principal); A64 Unspecified sexually transmitted disease; J45.909 Unspecified asthma, uncomplicated; Z79.899 Other long term (current) drug therapy; Z79.2 Long term (current) use of antibiotics; Z79.1 Long term (current) use of non-steroidal anti-inflammatories (NSAID)
CPT/HCPCS: 81001; 87086; 87491; 96372; 99283; J0696; J2001

== ENCOUNTER 2023-05-17 11:21 | Emergency (ER) | payer MEDICAID ==
[~2023-05-17] VITALS: Ht 175.3 cm; Wt 90.7 kg
[~2023-05-17 11:21] MED LIST changes: +CEPH-588 PO; +DOXY-690 PO; +NITR100C7 PO
[2023-05-17] MEDS ORDERED: ACETAMINOPHEN EXTRA STRENGTH 500 MG TAB PO ONE (11:45)
[2023-05-17] MEDS ORDERED: KETOROLAC 30 MG/ML VIAL IM ONE (11:45)
[2023-05-17 11:46] VITALS: BP 145/111; PULSE 119; RESP 22; TEMP 100; O2SAT 98
[2023-05-17] MEDS ORDERED: IBUP-2213 PO (12:02)
[2023-05-17] MEDS ORDERED: AMOX1TAB8 PO (12:02)
[2023-05-17] MEDS ORDERED: BENZ-300 PO (12:03)
[2023-05-17] MEDS ORDERED: ACET-10509 PO (12:03)
--- NOTE | 2023-05-17 12:09 | NUR ---
38 YO M C/O THROAT PAIN X 2DYS. DENIES FLU SYMPTOMS, N,V,D, FEVER , CHILLS. SAFETY MAINTAINED.
[2023-05-17 13:23] VITALS: O2SAT 98
--- NOTE | 2023-05-17 19:32 | NUR ---
Patient discharged with v/s stable. Written and verbal after care instructions given and explained. Patient verbalized understanding. Ambulatory with to home. All questions addressed prior to discharge. Advised to follow up with PMD.
== END 2023-05-17 19:32 | disposition home or self-care (01) ==
LOC: MED 11:21
DX: J02.9 Acute pharyngitis, unspecified (principal); M25.552 Pain in left hip; J45.909 Unspecified asthma, uncomplicated; Z79.899 Other long term (current) drug therapy; Z20.822 Contact with and (suspected) exposure to COVID-19
CPT/HCPCS: 73502; 87426; 87804; 96372; 99284; J1885

== ENCOUNTER 2023-07-15 04:49 | Emergency (ER) | payer MEDICAID ==
[~2023-07-15] VITALS: Ht 167.6 cm; Wt 81.6 kg
[~2023-07-15 04:49] MED LIST changes: +ACET-10509 PO; +BENZ-300 PO; +IBUP-2213 PO
[2023-07-15 04:55] VITALS: BP 138/98; PULSE 90; RESP 20; TEMP 97.7; O2SAT 99
[2023-07-15 05:10] VITALS: BP 141/97
[2023-07-15] MEDS ORDERED: LORazepam 1 MG TAB PO ONE (05:40)
[2023-07-15] MEDS ORDERED: ALBUTEROL SULFATE/IPRATROPIU 3 ML SOL IH ONE (05:40)
[2023-07-15 05:50] VITALS: PULSE 83; RESP 16; O2SAT 98
[2023-07-15 05:55] VITALS: O2SAT 99
[2023-07-15] MEDS ORDERED: ALBU0.0912 IH (06:31)
== END 2023-07-15 06:44 | disposition home or self-care (01) ==
LOC: MED 04:49
DX: J45.901 Unspecified asthma with (acute) exacerbation (principal); Z79.899 Other long term (current) drug therapy
CPT/HCPCS: 71045; 94640; 99283; Q0092

== ENCOUNTER 2023-08-20 03:50 | Emergency (ER) | payer MEDICAID ==
[~2023-08-20] VITALS: Ht 167.6 cm; Wt 86.2 kg
[2023-08-20 03:58] VITALS: BP 141/96; PULSE 93; RESP 18; TEMP 97.2; O2SAT 100
[2023-08-20] MEDS ORDERED: PSEUDOEPHEDRINE 30 MG TAB PO ONE (04:30)
[2023-08-20] MEDS ORDERED: ALBUTEROL HFA MDI 90 MCG/ACTUATION 8 GM INH ONE (04:30)
[2023-08-20] MEDS ORDERED: ALBUTEROL SULFATE/IPRATROPIU 3 ML SOL IH ONE (04:30)
[2023-08-20] MEDS ORDERED: ALBU0.0912 INH (04:33)
[2023-08-20] MEDS ORDERED: SUD30 PO (04:34)
[2023-08-20 04:44] VITALS: PULSE 81; RESP 16; O2SAT 97
[2023-08-20 05:01] VITALS: BP 125/82; PULSE 84; RESP 16; TEMP 97.9; O2SAT 99
[2023-08-30] MEDS ORDERED: ALBU0.0912 INH ×2 (01:25→01:45)
== END 2023-08-20 05:01 | disposition home or self-care (01) ==
LOC: MED 03:50
DX: J45.909 Unspecified asthma, uncomplicated (principal); R09.81 Nasal congestion; Z79.899 Other long term (current) drug therapy; Z79.1 Long term (current) use of non-steroidal anti-inflammatories (NSAID); Z79.2 Long term (current) use of antibiotics
CPT/HCPCS: 94640; 99283; J3535; 94664

== ENCOUNTER 2023-08-27 22:42 | Emergency (ER) | payer MEDICAID ==
[~2023-08-27] VITALS: Ht 152.4 cm; Wt 81.6 kg
[~2023-08-27 22:42] MED LIST changes: +ALBU0.0912 INH; +SUD30 PO
[2023-08-27 22:50] VITALS: BP 109/63; PULSE 98; RESP 20; TEMP 98; O2SAT 100
[2023-08-27] MEDS ORDERED: ALBUTEROL SULFATE/IPRATROPIU 3 ML SOL IH ONE (23:30)
[2023-08-27] MEDS ORDERED: predniSONE 20 MG TAB PO ONE (23:30)
[2023-08-27 23:35] VITALS: PULSE 101; RESP 16; O2SAT 97
[2023-08-28] MEDS ORDERED: PRED20TA5 PO (00:32)
[2023-08-28] MEDS ORDERED: ALBU0.0912 INH (00:32)
[2023-08-28] MEDS ORDERED: DOCU-299 PO (00:32)
[2023-08-28] MEDS ORDERED: MIRABULK PO (00:32)
[2023-08-28] MEDS ORDERED: SUD30 PO (00:32)
[2023-08-28] MEDS ORDERED: FLONAS NS (00:33)
[2023-08-28 00:39] VITALS: BP 109/63; PULSE 101; RESP 16; TEMP 98; O2SAT 97
[2023-08-30] MEDS ORDERED: ALBU0.0912 INH ×2 (01:25→01:45)
== END 2023-08-28 00:39 | disposition home or self-care (01) ==
LOC: MED 22:42
DX: J45.901 Unspecified asthma with (acute) exacerbation (principal); J06.9 Acute upper respiratory infection, unspecified; K59.00 Constipation, unspecified; Z79.899 Other long term (current) drug therapy; Z79.1 Long term (current) use of non-steroidal anti-inflammatories (NSAID); Z79.2 Long term (current) use of antibiotics
CPT/HCPCS: 94640; 99283; J7512

== ENCOUNTER 2023-10-09 10:35 | Emergency (ER) | payer MEDICAID ==
[~2023-10-09] VITALS: Ht 167.6 cm; Wt 86.2 kg
[~2023-10-09 10:35] MED LIST changes: +DOCU-299 PO; +MIRABULK PO; +PRED20TA5 PO
[2023-10-09 10:43] VITALS: BP 127/84; PULSE 91; RESP 14; TEMP 98.2; O2SAT 98
[2023-10-09] MEDS ORDERED: CETI10SG1 PO (12:14)
[2023-10-09] MEDS ORDERED: FLONAS NS (12:14)
[2023-10-09] MEDS ORDERED: ALBU0.0912 IH (12:14)
[2023-10-09 12:40] LABS: FLU A ANTIGEN negative (NEGATIVE); FLU B ANTIGEN NEGATIVE (NEGATIVE)
== END 2023-10-09 12:21 | disposition home or self-care (01) ==
LOC: MED 10:35
DX: R09.89 Other specified symptoms and signs involving the circulatory and respiratory systems (principal); Z20.822 Contact with and (suspected) exposure to COVID-19; R03.0 Elevated blood-pressure reading, without diagnosis of hypertension; J45.909 Unspecified asthma, uncomplicated; Z79.899 Other long term (current) drug therapy; Z76.0 Encounter for issue of repeat prescription
CPT/HCPCS: 99283

== ENCOUNTER 2023-10-11 16:51 | Emergency (ER) | payer MEDICAID ==
[~2023-10-11] VITALS: Ht 167.6 cm; Wt 90.7 kg
[~2023-10-11 16:51] MED LIST changes: +CETI10SG1 PO
[2023-10-11 17:18] VITALS: BP 132/86; PULSE 104; RESP 20; TEMP 98.9; O2SAT 98
[2023-10-11] MEDS ORDERED: ALBUTEROL 0.083% 2.5 MG/3 ML NEBU INH ONE ×2 (18:35→19:04)
[2023-10-11] MEDS ORDERED: ALBUTEROL 0.083% 2.5 MG/3 ML NEBU INH STA (19:05)
[2023-10-11 19:11] VITALS: PULSE 112; RESP 16; O2SAT 99
[2023-10-11] MEDS ORDERED: FLONAS NS (19:44)
[2023-10-11] MEDS ORDERED: CETI10SG1 PO (19:44)
[2023-10-11] MEDS ORDERED: ALBU0.0912 IH (19:44)
== END 2023-10-11 19:47 | disposition home or self-care (01) ==
LOC: MED 16:51
DX: J06.9 Acute upper respiratory infection, unspecified (principal); J45.909 Unspecified asthma, uncomplicated; Z79.899 Other long term (current) drug therapy; Z79.1 Long term (current) use of non-steroidal anti-inflammatories (NSAID); Z79.2 Long term (current) use of antibiotics
CPT/HCPCS: 94640; 99283; J7613

== ENCOUNTER 2023-11-09 14:53 | Emergency (ER) | payer MEDICAID ==
[~2023-11-09] VITALS: Ht 167.6 cm; Wt 81.6 kg
[2023-11-09 15:25] VITALS: BP_SYST 143; BP_SYST 156; BP_DIAS 100; BP_DIAS 109; PULSE 107; PULSE 97; RESP 14; RESP 16; TEMP 97.8; TEMP 98.1; O2SAT 96; O2SAT 99
[2023-11-09] MEDS ORDERED: CEPH-588 PO (16:19)
[2023-11-09] MEDS ORDERED: IBUP-2213 PO (16:19)
[2023-11-09] MEDS ORDERED: BACI-418 TP (16:19)
[2023-11-09] MEDS ORDERED: IBUPROFEN 600 MG TAB PO ONE (16:20)
[2023-11-09 16:35] VITALS: BP 143/100; PULSE 107; RESP 14; TEMP 98.1; O2SAT 99
== END 2023-11-09 16:35 | disposition home or self-care (01) ==
LOC: MED 14:53
DX: R22.0 Localized swelling, mass and lump, head (principal); J45.909 Unspecified asthma, uncomplicated; Z79.899 Other long term (current) drug therapy; Z79.1 Long term (current) use of non-steroidal anti-inflammatories (NSAID); Z79.2 Long term (current) use of antibiotics
CPT/HCPCS: 99283

== ENCOUNTER 2024-02-03 20:05 | Emergency (ER) | payer MEDICAID ==
[~2024-02-03] VITALS: Ht 167.6 cm; Wt 81.6 kg
[~2024-02-03 20:05] MED LIST changes: +BACI-418 TP
[2024-02-03 21:06] VITALS: BP 170/102; PULSE 103; RESP 24; TEMP 98.5; O2SAT 99
[2024-02-03] MEDS ORDERED: LIDOCAINE/EPI 1% 1:100000 20 ML VIAL INJ ONE (23:14)
[2024-02-03] MEDS: LIDOCAINE/EPI 1% 1:100000 20 ML VIAL INJ ONE (23:50)
[2024-02-04] MEDS ORDERED: SULF-59 PO (00:18)
[2024-02-04 00:35] VITALS: BP 152/102; PULSE 98; RESP 24; TEMP 98.5; O2SAT 99
== END 2024-02-04 00:35 | disposition home or self-care (01) ==
LOC: MED 20:05
DX: L02.413 Cutaneous abscess of right upper limb (principal); R07.9 Chest pain, unspecified; J02.9 Acute pharyngitis, unspecified; J45.909 Unspecified asthma, uncomplicated; Z79.899 Other long term (current) drug therapy
CPT/HCPCS: 10060; 99284; J2001

== ENCOUNTER 2024-02-07 11:58 | Emergency (ER) | payer MEDICAID ==
[~2024-02-07] VITALS: Ht 167.6 cm; Wt 86.2 kg
[~2024-02-07 11:58] MED LIST changes: +SULF-59 PO
[2024-02-07 12:13] VITALS: BP 122/88; PULSE 98; RESP 19; TEMP 97.1; O2SAT 99
[2024-02-07] MEDS ORDERED: IBUP-1842 PO (12:35)
[2024-02-07] MEDS ORDERED: BENZ200C4 PO (12:35)
[2024-02-07] MEDS ORDERED: ALBU0.0912 IH (12:35)
[2024-02-07] MEDS ORDERED: ACET-10509 PO (12:35)
[2024-02-07] MEDS: ACETAMINOPHEN EXTRA STRENGTH 500 MG TAB PO ONE (12:43)
[2024-02-07 13:43] LABS: FLU A ANTIGEN negative (NEGATIVE); FLU B ANTIGEN NEGATIVE (NEGATIVE)
== END 2024-02-07 12:44 | disposition home or self-care (01) ==
LOC: MED 11:58
DX: J06.9 Acute upper respiratory infection, unspecified (principal); Z20.822 Contact with and (suspected) exposure to COVID-19; J45.909 Unspecified asthma, uncomplicated; Z79.899 Other long term (current) drug therapy
CPT/HCPCS: 99283

== ENCOUNTER 2024-02-27 12:06 | Emergency (ER) | payer MEDICAID ==
[~2024-02-27] VITALS: Ht 167.6 cm; Wt 86.2 kg
[~2024-02-27 12:06] MED LIST changes: +BENZ200C4 PO
[2024-02-27 12:16] VITALS: BP 143/86; PULSE 107; RESP 18; TEMP 97.8; O2SAT 97
[2024-02-27] MEDS ORDERED: AMOX-1230 PO (12:46)
[2024-02-27] MEDS ORDERED: IBUP-2213 PO (12:46)
[2024-02-28] MEDS ORDERED: ACET-8905 PO (22:52)
== END 2024-02-27 12:50 | disposition home or self-care (01) ==
LOC: MED 12:06
DX: K13.0 Diseases of lips (principal); J45.909 Unspecified asthma, uncomplicated; Z79.899 Other long term (current) drug therapy
CPT/HCPCS: 99283

== ENCOUNTER 2024-02-28 21:49 | Emergency (ER) | payer MEDICAID ==
[~2024-02-28] VITALS: Ht 167.6 cm; Wt 86.2 kg
[~2024-02-28 21:49] MED LIST changes: +AMOX-1230 PO
[2024-02-28 21:50] VITALS: BP 132/89; PULSE 99; RESP 19; TEMP 98; O2SAT 100
[2024-02-28 22:02] VITALS: O2SAT 98
[2024-02-28] MEDS ORDERED: ACET-8905 PO (22:52)
[2024-02-28] MEDS: HYDROcodone/APAP 5/325 MG 1 TAB TAB PO ONE (22:56)
[2024-02-28 23:02] VITALS: BP 164/98; PULSE 87; RESP 17; TEMP 98.4; O2SAT 97
[2024-02-29] MEDS ORDERED: CEPH-588 PO (18:04)
[2024-02-29] MEDS ORDERED: ACET-9520 PO (18:06)
== END 2024-02-28 23:02 | disposition home or self-care (01) ==
LOC: MED 21:49
DX: K13.0 Diseases of lips (principal); Z79.899 Other long term (current) drug therapy
CPT/HCPCS: 99283

== ENCOUNTER 2024-02-29 16:01 | Emergency (ER) | payer MEDICAID ==
[~2024-02-29] VITALS: Ht 167.6 cm; Wt 81.6 kg
[~2024-02-29 16:01] MED LIST changes: +ACET-8905 PO
[2024-02-29 16:12] VITALS: BP 132/94; PULSE 100; RESP 20; TEMP 98.1; O2SAT 99
[2024-02-29] MEDS ORDERED: CEPH-588 PO (18:04)
[2024-02-29] MEDS ORDERED: ACETAMINOPHEN 325 MG TAB PO ONE (18:05)
[2024-02-29] MEDS ORDERED: ACET-9520 PO (18:06)
[2024-02-29] MEDS: ACETAMINOPHEN EXTRA STRENGTH 500 MG TAB PO STA (18:09)
[2024-02-29 18:12] VITALS: BP 126/72; PULSE 71; RESP 18; O2SAT 98
== END 2024-02-29 18:12 | disposition home or self-care (01) ==
LOC: MED 16:01
DX: K13.0 Diseases of lips (principal); L02.03 Carbuncle of face; J45.909 Unspecified asthma, uncomplicated; Z79.899 Other long term (current) drug therapy
CPT/HCPCS: 99284

== ENCOUNTER 2024-03-26 13:22 | Emergency (ER) | payer MEDICAID ==
[~2024-03-26] VITALS: Ht 167.6 cm; Wt 86.2 kg
[~2024-03-26 13:22] MED LIST changes: +ACET-9520 PO
[2024-03-26 13:28] VITALS: BP 127/91; PULSE 102; RESP 18; TEMP 99.3; O2SAT 99
[2024-03-26] MEDS ORDERED: LORA10TA19 PO (13:49)
[2024-03-26] MEDS ORDERED: PROM118S5 PO (13:49)
[2024-03-26] MEDS ORDERED: ACET-2619 PO (13:49)
[2024-03-26] MEDS ORDERED: ALBU0.0912 IH (13:49)
[2024-03-26] MEDS ORDERED: FLONAS NS (13:49)
[2024-03-26 14:03] VITALS: BP 115/88; PULSE 88; RESP 16; TEMP 98; O2SAT 99
== END 2024-03-26 14:03 | disposition home or self-care (01) ==
LOC: MED 13:22
DX: J06.9 Acute upper respiratory infection, unspecified (principal); J45.909 Unspecified asthma, uncomplicated; Z79.899 Other long term (current) drug therapy
CPT/HCPCS: 99283

== ENCOUNTER 2024-05-05 13:52 | Emergency (ER) | payer MEDICAID ==
[~2024-05-05] VITALS: Ht 160 cm; Wt 81.6 kg
[~2024-05-05 13:52] MED LIST changes: +ACET-2619 PO; +LORA10TA19 PO; +PROM118S5 PO
[2024-05-05 13:56] VITALS: BP 146/106; PULSE 102; RESP 16; TEMP 97.1; O2SAT 99
[2024-05-05] MEDS ORDERED: [UNRECOGNIZED DRUG - CODE] OP (14:29)
== END 2024-05-05 14:39 | disposition home or self-care (01) ==
LOC: MED 13:52
DX: H10.89 Other conjunctivitis (principal); B96.89 Other specified bacterial agents as the cause of diseases classified elsewhere; I10 Essential (primary) hypertension; J45.909 Unspecified asthma, uncomplicated; Z79.1 Long term (current) use of non-steroidal anti-inflammatories (NSAID); Z79.2 Long term (current) use of antibiotics; Z79.899 Other long term (current) drug therapy
CPT/HCPCS: 99283

== ENCOUNTER 2024-06-10 19:28 | Emergency (ER) | payer MEDICAID ==
[~2024-06-10] VITALS: Ht 167.6 cm; Wt 81.6 kg
[~2024-06-10 19:28] MED LIST changes: +[UNRECOGNIZED DRUG - CODE] OP
[2024-06-10 19:40] VITALS: BP 152/100; PULSE 98; RESP 16; TEMP 97.2; O2SAT 99
[2024-06-10] MEDS ORDERED: BENZ-300 PO (20:26)
[2024-06-10] MEDS ORDERED: AMOX500C25 PO (20:26)
[2024-06-10] MEDS ORDERED: MIRABULK PO (20:26)
[2024-06-10] MEDS: IBUPROFEN 600 MG TAB PO ONE (20:38)
== END 2024-06-10 20:42 | disposition home or self-care (01) ==
LOC: MED 19:28
DX: J02.9 Acute pharyngitis, unspecified (principal); K59.00 Constipation, unspecified; I10 Essential (primary) hypertension; J45.909 Unspecified asthma, uncomplicated; Z79.2 Long term (current) use of antibiotics; Z79.899 Other long term (current) drug therapy
CPT/HCPCS: 99283

== ENCOUNTER 2024-06-15 23:25 | Emergency (ER) | payer MEDICAID ==
[~2024-06-15] VITALS: Ht 160 cm; Wt 86.2 kg
[2024-06-15 23:36] VITALS: BP 138/80; PULSE 88; RESP 18; TEMP 98; O2SAT 97
[2024-06-16] MEDS: ALBUTEROL 0.083% 2.5 MG/3 ML NEBU INH ONE (00:08)
== END 2024-06-16 00:35 | disposition left against medical advice (07) ==
LOC: MED 23:25
DX: R06.89 Other abnormalities of breathing (principal); Z53.21 Procedure and treatment not carried out due to patient leaving prior to being seen by health care provider
CPT/HCPCS: 94640; J7613

== ENCOUNTER 2024-07-25 12:33 | Emergency (ER) | payer MEDICAID ==
[~2024-07-25] VITALS: Ht 167.6 cm; Wt 81.6 kg
[~2024-07-25 12:33] MED LIST changes: -ACET-10509 PO; +ACET500T99 PO
[2024-07-25 13:10] VITALS: BP 155/100; PULSE 98; RESP 22; TEMP 97.9; O2SAT 98
[2024-07-25] MEDS ORDERED: ACETAMINOPHEN EXTRA STRENGTH 500 MG TAB ONE (14:32)
[2024-07-25] MEDS: ACETAMINOPHEN EXTRA STRENGTH 500 MG TAB PO ONE (14:37)
[2024-07-26] MEDS ORDERED: ACET500T99 PO (01:59)
[2024-07-26] MEDS ORDERED: IBUP-1842 PO (02:00)
[2024-07-26] MEDS ORDERED: AMOX1TAB8 PO (02:01)
[2024-07-26] MEDS ORDERED: AZIT250T4 PO (02:01)
== END 2024-07-25 14:36 | disposition left against medical advice (07) ==
LOC: MED 12:33
DX: R30.0 Dysuria (principal); J45.909 Unspecified asthma, uncomplicated; I10 Essential (primary) hypertension; Z79.899 Other long term (current) drug therapy
CPT/HCPCS: 99281; 99282

== ENCOUNTER 2024-07-25 21:17 | Emergency (ER) | payer MEDICAID ==
[~2024-07-25] VITALS: Ht 167.6 cm; Wt 81.6 kg
[2024-07-25 21:47] VITALS: BP 142/98; PULSE 102; RESP 20; TEMP 98.7; O2SAT 98
[2024-07-25] MEDS: KETOROLAC 30 MG/ML VIAL IVP ONE (22:45)
[2024-07-25] MEDS: NACL 0.9% 1,000 ML IV ONE (22:45)
[2024-07-25 23:00] LABS: BASOPHILS # (AUTO) 0.1 K/uL (0.00-0.22); BASOPHILS % (AUTO) 0.8 % (0.0-2.0); EOSINOPHILS # (AUTO) 0.1 K/uL (0-0.4); EOSINOPHILS % (AUTO) 0.9 % (0.0-4.0); HEMATOCRIT 37.8 % (36-52); HEMOGLOBIN 12.9 g/dL (12.0-18.0); LYMPHOCYTES # (AUTO) 0.9 K/uL (2.0-11.5); LYMPHOCYTES % (AUTO) 13.3 % (20.5-51.1); MEAN CORPUSCULAR HEMOGLOBIN 31 pg (27-31); MEAN CORPUSCULAR HGB CONC 34 g/dL (33-37); MEAN CORPUSCULAR VOLUME 90.9 fL (80-94); MONOCYTES # (AUTO) 0.5 K/uL (0.8-1.0); MONOCYTES % (AUTO) 6.7 % (1.7-9.3); NEUTROPHILS # (AUTO) 5.5 K/uL (1.8-7.7); NEUTROPHILS % (AUTO) 78.3 % (42.2-75.2); PLATELET COUNT (AUTO) 283 K/uL (140-450); RED BLOOD CELL COUNT(AUTO) 4.16 MIL/uL (4.20-6.10); RED CELL DISTRIBUTION WIDTH 13.1 % (11.6-13.7)
[2024-07-25 23:18] LABS: ANION GAP 16.4 (8-16); CALCIUM 8.3 mg/dL (8.5-10.1); CARBON DIOXIDE 22.4 mmol/L (21-32); CREATININE 0.7 mg/dL (0.6-1.3); POTASSIUM 3.8 mmol/L (3.5-5.1)
[2024-07-25] MEDS: ACETAMINOPHEN EXTRA STRENGTH 500 MG TAB PO ONE (23:37)
[2024-07-26 00:52] LABS: APPEARANCE,URINE CLEAR (CLEAR); BILIRUBIN,URINE NEGATIVE (NEGATIVE); BLOOD, URINE TRACE-I (NEGATIVE); COLOR,URINE YELLOW (YELLOW); LEUKOCYTE ESTERASE ,URINE NEGATIVE (NEGATIVE); NITRITE, URINE NEGATIVE (NEGATIVE); PROTEIN,URINE NEGATIVE (NEGATIVE); UGLUCOSE NEGATIVE (NEGATIVE); UROBILINOGEN,URINE 0.2 EU/dL (0.2 - 1)
[2024-07-26 00:56] LABS: RBC,URINE 0-5 /HPF (0-5); WBC,URINE 0-5 /HPF (0-5)
[2024-07-26 00:57] LABS: BACTERIA,URINE 10-30 (MOD) /HPF (None Seen); MUCUS,URINE 1+ /LPF (None Seen); SQUAMOUS EPITHELIAL CELL,UR 4-10 (MOD) /LPF (0-3 (FEW))
[2024-07-26 01:23] LABS: FLU A ANTIGEN negative (NEGATIVE); FLU B ANTIGEN NEGATIVE (NEGATIVE)
[2024-07-26] MEDS ORDERED: ACET500T99 PO (01:59)
[2024-07-26] MEDS ORDERED: IBUP-1842 PO (02:00)
[2024-07-26] MEDS ORDERED: AZIT250T4 PO (02:01)
[2024-07-26] MEDS ORDERED: AMOX1TAB8 PO (02:01)
[2024-07-26 02:40] VITALS: BP 128/81; PULSE 90; RESP 17; TEMP 98.1; O2SAT 98
[2024-07-27] MEDS ORDERED: HYDR-2734 RC (20:54)
[2024-07-27] MEDS ORDERED: ACET500T99 PO (20:54)
[2024-07-27] MEDS ORDERED: DOCU-299 PO (20:54)
== END 2024-07-26 02:40 | disposition home or self-care (01) ==
LOC: MED 21:17
DX: J18.9 Pneumonia, unspecified organism (principal); J45.909 Unspecified asthma, uncomplicated; I10 Essential (primary) hypertension; F15.90 Other stimulant use, unspecified, uncomplicated; Z20.822 Contact with and (suspected) exposure to COVID-19; Z79.2 Long term (current) use of antibiotics; Z79.899 Other long term (current) drug therapy
CPT/HCPCS: 36415; 71045; 80048; 81001; 85025; 86703; 87426; 87491; 87804; 96361; 96374; 99284; J1885; J7030; Q0092

== ENCOUNTER 2024-07-27 19:50 | Emergency (ER) | payer MEDICAID ==
[~2024-07-27] VITALS: Ht 167.6 cm; Wt 81.6 kg
[~2024-07-27 19:50] MED LIST changes: +AZIT250T4 PO
[2024-07-27 20:02] VITALS: PULSE 100; RESP 20; TEMP 98.1; O2SAT 100
[2024-07-27] MEDS ORDERED: HYDR-2734 RC (20:54)
[2024-07-27] MEDS ORDERED: DOCU-299 PO (20:54)
[2024-07-27] MEDS ORDERED: ACET500T99 PO (20:54)
== END 2024-07-27 21:09 | disposition home or self-care (01) ==
LOC: MED 19:50
DX: K64.9 Unspecified hemorrhoids (principal); J45.909 Unspecified asthma, uncomplicated; I10 Essential (primary) hypertension; Z79.1 Long term (current) use of non-steroidal anti-inflammatories (NSAID); Z79.2 Long term (current) use of antibiotics; Z79.899 Other long term (current) drug therapy
CPT/HCPCS: 99282